=== PATIENT | female | born 1980 | race Caucasian/White ===

== ENCOUNTER 2018-03-03 11:29 | Observation (INO) | payer OTHER ==
[~2018-03-03] VITALS: Ht 154.9 cm; Wt 88.9 kg
[2018-03-03] MEDS ORDERED: LACTATED RINGERS 1000ML 1,000 ML IV ONE (12:15)
[2018-03-03 12:52] LABS: AMPHET/METH SCREEN,URINE NEGATIVE (NEGATIVE); BARBITURATE SCREEN, URINE NEGATIVE (NEGATIVE); BENZODIAZEPINES SCREEN,URINE NEGATIVE (NEGATIVE); CANNABINOID SCREEN,URINE POSITIVE (NEGATIVE); COCAINE SCREEN,URINE NEGATIVE (NEGATIVE); OPIATE SCREEN,URINE NEGATIVE (NEGATIVE); PHENCYCLIDINE SCREEN,URINE NEGATIVE (NEGATIVE)
[2018-03-03 12:58] LABS: APPEARANCE,URINE Clear (CLEAR); BILIRUBIN,URINE Negative (NEGATIVE); COLOR,URINE Yellow (YELLOW); GLUCOSE, URINE (UA) Negative (NEGATIVE); KETONES,URINE Negative (NEGATIVE); LEUKOCYTE ESTERASE ,URINE Small (NEGATIVE); NITRATE,URINE Negative (NEGATIVE); OCCULT BLOOD,URINE Negative (NEGATIVE); PH,URINE 7.5 (5.0-8.0); PROTEIN,URINE Negative (NEGATIVE); UROBILINOGEN,URINE 0.2 mg/dL (0.2-1.0)
[2018-03-03 13:25] LABS: BACTERIA,URINE Rare /HPF (None Seen); RBC,URINE 0-1 /HPF (0-1); SQUAMOUS EPITHELIAL CELL,UR Few /HPF (0-2); WBC,URINE 0-1 /HPF (0-1)
[2018-03-16] MEDS ORDERED: GLYB5TAB8 PO (19:51)
== END 2018-03-03 14:10 | disposition home or self-care (01) ==
LOC: LDH 11:29
PROVIDERS: ADMIT Obstetrics & Gynecology; ATTEND Obstetrics & Gynecology
DX: O24.113 Pre-existing type 2 diabetes mellitus, in pregnancy, third trimester (principal); O99.323 Drug use complicating pregnancy, third trimester; O09.523 Supervision of elderly multigravida, third trimester; F12.10 Cannabis abuse, uncomplicated; Z87.891 Personal history of nicotine dependence; Z3A.37 37 weeks gestation of pregnancy; Z79.899 Other long term (current) drug therapy
CPT/HCPCS: 76805; 76819; 80305; 81001; G0378 ×3; J7120 ×2; 96360

== ENCOUNTER 2018-05-03 05:45 | Day surgery (SDC) | payer OTHER ==
[2018-05-02 13:25] VITALS: BP 127/70
[2018-05-02 13:38] LABS: BASOPHILS % (AUTO) 0.5 % (0.0-5.0); EOSINOPHILS % (AUTO) 3.1 % (0.0-8.0); LYMPHOCYTES % (AUTO) 29.2 % (21.0-51.0); MEAN CORPUSCULAR HGB CONC 34.1 g/dL (32.0-36.0); MEAN CORPUSCULAR VOLUME 85.1 fL (79-99); MONOCYTES % (AUTO) 4.4 % (3.0-13.0); NEUTROPHILS % (AUTO) 62.8 % (40.0-77.0); NUCLEATED RED BLOOD CELLS 0.1 % (0.0-0.19); PLATELET COUNT (AUTO) 362 K/uL (130-400); RED CELL DISTRIBUTION WIDTH 13.8 % (11.0-15.5); WHITE BLOOD COUNT (AUTO) 8.1 K/uL (4.8-10.8)
[2018-05-03] VITALS (15 sets, daily range): BP systolic 127–159; BP diastolic 62–97
[~2018-05-03] VITALS: Ht 160 cm; Wt 79.5 kg
[~2018-05-03 05:45] MED LIST: AMLO5TAB7 PO; GABA-531 PO; LACTATED RINGERS 1000ML 1,000 ML IV SCH; LISI-613 PO; PRENATAL VIT PO
[2018-05-03] MEDS ORDERED: METOCLOPRAMIDE 10 MG/2 ML VIAL ONE (06:50)
[2018-05-03] MEDS ORDERED: FAMOTIDINE/PF 20 MG/2 ML VIAL IV ONE (06:50)
[2018-05-03] MEDS ORDERED: LIDOCAINE PF 2% 5ML ABBOJECT ONE (07:00)
[2018-05-03] MEDS ORDERED: ROCURONIUM 10MG/1ML SYR 10 MG/ML ML ONE (07:00)
[2018-05-03] MEDS ORDERED: SUCCINYLCHOLINE 200MG/10ML SYR ONE (07:00)
[2018-05-03] MEDS ORDERED: PROPOFOL 10 MG/ML 20ML VIAL IV ONE (07:00)
[2018-05-03] MEDS ORDERED: FENTANYL CITRATE PF 50 MCG/1 ML 2ML VIAL ONE ×3 (07:01→08:36)
[2018-05-03] MEDS ORDERED: EPHEDRINE SULFATE 50 MG/ML AMPULE ONE (07:38)
[2018-05-03] MEDS ORDERED: NEOSTIGMINE 5MG/5ML SYR IV ONE (07:50)
[2018-05-03] MEDS ORDERED: GLYCOPYRROLATE 1 MG/5 ML SYRINGE ONE (07:50)
[2018-05-03] MEDS ORDERED: ONDANSETRON HCL 4 MG/2 ML VIAL ONE (07:54)
[2018-05-03] MEDS ORDERED: MEPERIDINE-PF 25 MG/ML SYG ONE (08:15)
== END 2018-05-03 10:00 | disposition home or self-care (01) ==
LOC: DAH 05:45
PROVIDERS: ATTEND Obstetrics & Gynecology
DX: Z30.2 Encounter for sterilization (principal); Z98.890 Other specified postprocedural states; Z82.49 Family history of ischemic heart disease and other diseases of the circulatory system; Z80.3 Family history of malignant neoplasm of breast; Z68.32 Body mass index [BMI] 32.0-32.9, adult; Z79.899 Other long term (current) drug therapy; I10 Essential (primary) hypertension
CPT/HCPCS: 36415; 58670; 84702; 85025; 86850; 86900; 86901; A4215; A4351; A4452; A4606; C1769 ×2; J0330; J2001; J2175; J2405; J2704; J2710; J2765; J3010 ×3; J3490 ×3; J7120 ×2

== ENCOUNTER 2023-11-30 11:05 | Emergency (ER) | payer BC, OTHER ==
[~2023-11-30] VITALS: Ht 152.4 cm; Wt 61.2 kg
[~2023-11-30 11:05] MED LIST changes: +AMLO-257 PO; -AMLO5TAB7 PO; -LACTATED RINGERS 1000ML 1,000 ML IV SCH; -LISI-613 PO; +LISI20TA24 PO
[2023-11-30 12:13] LABS: APPEARANCE,URINE CLEAR (CLEAR); BILIRUBIN,URINE NEGATIVE (NEGATIVE); COLOR,URINE COLORLESS (YELLOW); GLUCOSE, URINE (UA) NEGATIVE (NEGATIVE); KETONES,URINE NEGATIVE (NEGATIVE); LEUKOCYTE ESTERASE ,URINE NEGATIVE Leu/uL (NEGATIVE); NITRATE,URINE NEGATIVE (NEGATIVE); OCCULT BLOOD,URINE NEGATIVE (NEGATIVE); PH,URINE 6.5 (5.0-8.0); PROTEIN,URINE NEGATIVE (NEGATIVE); UROBILINOGEN,URINE 0.2 mg/dL (0.2-1.0)
[2023-11-30 12:21] LABS: ADD UA MICROSCOPIC NO; HCG,QUALITATIVE URINE NEGATIVE (NEGATIVE)
[2023-11-30] MEDS: ACETAMINOPHEN 500 MG TABLET PO ONE (12:23)
[2023-11-30] MEDS ORDERED: IBUP-2077 PO (14:14)
[2023-11-30 14:24] VITALS: BP 156/85; PULSE 66; RESP 16; O2SAT 100
== END 2023-11-30 15:14 | disposition home or self-care (01) ==
LOC: EDH 11:05
DX: S00.83XA Contusion of other part of head, initial encounter (principal); S80.11XA Contusion of right lower leg, initial encounter; S09.90XA Unspecified injury of head, initial encounter; Z88.5 Allergy status to narcotic agent; Z98.51 Tubal ligation status; W50.0XXA Accidental hit or strike by another person, initial encounter; Y93.89 Activity, other specified; Y92.89 Other specified places as the place of occurrence of the external cause; Y99.8 Other external cause status
CPT/HCPCS: 70486; 73090; 81003; 81025